=== PATIENT | male | born 1955 | race Caucasian/White ===

== ENCOUNTER 2021-11-30 08:01 | Outpatient (CLI) | payer MEDICARE, SELFPAY ==
--- NOTE | ~2021-11-30 | MR_ITS ---
EXAMINATION: MR hip RT wo/w con DATE: 11/30/2021 09:45 INDICATION: Right hip mass TECHNIQUE: Magnetic resonance imaging (MRI) of the right hip was performed without intravenous contr ast. Sequences included full-field axial PD-weighted FS FSE, T1-weighted FSE, and T1-weighted FS FSE, coronal of the pelvis with PD-weighted FS FSE, T2-weighted FSE and T1-weighted FSE, small field of v iew of the right hip with axial PD-weighted FS FSE, sagittal PD-weighted FS FSE, coronal PD-weighted FS FSE and coronal T2 weighted FSE. Additional radial T1-weighted FGR oriented orthogonal to the ac etabular rim were obtained for evaluation of the labrum. Additional postcontrast full-field axial T1- weighted FS FSE of the pelvis and small [id number] coronal T1-weighted FS FSE of the right hip wer e obtained. COMPARISON: None FINDINGS: Bones/labrum/cartilage: Alignment is normal. No fracture, avascular necrosis or pathologic marrow replacing process. Mild ri ght hip osteoarthritis with posterior predominant mild nonuniform joint space narrowing with mild par tial-thickness cartilage loss with smooth chondral surface. Small tear along the peripheral third of the superolateral right acetabular labrum. Fluid: Symmetric physiologic amount of fluid within both hip joints. Soft tissues: There is a 12 x 3 x 3 cm lenticular intramuscular fatty mass in the right gluteus fish muscle. Thi s contains a central 3.0 x 2.3 x 2.4 cm nonfatty nodular component with central region of low signal intensity on all sequences and a thick peripherally enhancing rim within which appears to be a curvil inear region of low signal intensity suggesting possibility of rim calcification. Differential would include either liposarcoma or heterotopic ossification within a lipoma. Remaining musculature of the pelvis and visualized proximal thighs appears normal. Mild tendinopathy without tear at the ischial t uberosity origins of the bilateral proximal hamstring tendons. The iliopsoas and gluteal tendons are normal. Limited evaluation of visceral organs of the pelvis is unremarkable. No pathologically enlar ged pelvic/inguinal lymphadenopathy. IMPRESSION: 1. 12 x 3 x 3 mm intramuscular fatty mass in the right gluteus fish with 3 cm central nonfatty nod ular component with rim of peripheral enhancement. Differential includes liposarcoma or potentially f at necrosis with heterotopic ossification. Recommend further evaluation with pre and postcontrast CT of the pelvis. 2. Mild right hip osteoarthritis with small tear along the superolateral right acetabular labrum. 3. Mild tendinopathy at the ischial tuberosity origins of the bilateral proximal hamstring tendons. Reviewed, dictated and finalized at location A. ROPOLOGY INSTRUCTOR IMPRESSION: 1. 12 x 3 x 3 mm intramuscular fatty mass in the right gluteus fish with 3 c m central nonfatty nodular component with rim of peripheral enhancement. Differ ential includes liposarcoma or potentially fat necrosis with heterotopic ossifi cation. Recommend further evaluation with pre and postcontrast CT of the pelvis . 2. Mild right hip osteoarthritis with small tear along the superolateral right acetabular labrum. 3. Mild tendinopathy at the ischial tuberosity origins of the bilateral proxima l hamstring tendons.
[2021-11-30 08:36] LABS: Estimated Glomerular Filt Rate > 60
== END 2021-11-30 08:02 | disposition home or self-care (01) ==
LOC: ANHIMG 08:04
PROVIDERS: PCP Family Medicine; Visit Provider Urology
DX: M16.11 Unilateral primary osteoarthritis, right hip (principal); R22.41 Localized swelling, mass and lump, right lower limb
CPT/HCPCS: 73723; A9577

== ENCOUNTER 2025-10-07 07:58 | Outpatient (CLI) | payer MEDICARE, SELFPAY ==
--- OUTSIDE RECORDS SUMMARY | 2025-10-07 08:10 | XMS_ITS | Encounter Summary ---
Author Organization [facility] Healthcare Address [address] [place] [id number] Care Team Providers Care Associate Business Analyst Name Role Phone Omero Mcfarlane MD Primary Care Provider Reason for Referral * MRI/CAT/PET Scan (Routine) - Closed Specialty Diagnoses / Procedures Referred By Contac t Referred To Contact Radiology Diagnoses Prostate cancer (HCC) Procedures MRI PELVIS PROSTATE W WO CONTRAST Alejandro Mancera MD [address] [address] Phone: tel: fax: [address] [address] Referral ID Status Reason Start Date Expiration Date Visits Re quested Visits Authorized [id number] Closed 07/08/2024 09/06/2024 1 1 Encounter Details Date Type Department Care Team (Late st Contact Info) Description 07/23/2024 Community Orders [facility] EpicCare Link Alejandro Mancera MD [address] [address] Prostate cancer (HCC) (Primary Dx) Social History Tobacco Use Types Packs/Day Years Used Date Smoking Tobacco: Never Personal Safety Answer Date Recorded Getting School Help Needed Not on file 01/14 Sex and Gender Information Value Date Recorded Sex Assigned at Not on file 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 Patient denies any symptoms. TECHNIQUE: MRI of the pelvis performed without and with intravenous contrast according to the prostate protocol. All images stored on PACS. CONTRAST TYPE/DOSE: 19mL of GADOTERATE MEGLUMINE 0.5 MMOL/ML INTRAVENOUS SOLUTION (SO) injected via intravenous COMPARISON: MRI pelvis 03/07/2023. FINDINGS: PROSTATE: Size: 3.6 x 5.0 x 3.8 cm. Volume: 35.6 cc. PSA: not available. TRANSITIONAL ZONE: There are changes of mild prostatic hyperplasia. Again noted in the left transitional zone spanning from the base to the midgland is a region of ill-defined T2 hypointense signal. There is also restricted diffusion (series 7 image 56; series 9 image 14). This lesion does not appear to be in capsulated. There is equivocal postcontrast enhancement. PERIPHERAL ZONE: There is artifact on the T2 space sequence, somewhat degrading evaluation. There are some peripheral wedge-shaped areas low T2 signal most compatible with scarring from prior or chronic prostatitis. There is mild asymmetric atrophy of the left peripheral zone. No suspicious masses. SEMINAL VESICLES: Atrophic. NEUROVASCULAR BUNDLE: Normal. LYMPH NODES: No pathologically enlarged lymph nodes. URINARY: Normal. GI: Normal. MUSCULOSKELETAL: No suspicious osseous lesions appreciated. Again noted within the muscle belly of the right gluteus fish (series 2, image 13) there is a 2.3 cm rounded mass which is surrounded by fat. The mass is heterogeneous in appearance. It is not in the field of view on the postcontrast sequences OTHER: No other significant finding. IMPRESSION: 1. A left transitional zone lesion may have slightly increased in size and is categorized as PI-RADS 4. 2. Again noted within the muscle belly of the right gluteus fish there is a 2.3 cm rounded mass which is surrounded by fat. The mass is heterogeneous in appearance. It is not in the field of view on the postcontrast sequences. This is indeterminate. Recommend further evaluation with CT or MRI of the pelvis/right hip with and without contrast. THIS IS AN ELECTRONICALLY VERIFIED FINAL REPORT 09/08/2024 9:31 AM - Electronically signed by Joseph Bermudez M.D. AM: AM Report ID: [id number] Reading Location: [id number] Procedure Note Joseph Bermudez MD - 09/08/2024 EXAM DESCRIPTION: MRI PELVIS PROSTATE W WO CONTRAST REASON FOR STUDY: Prostate cancer, monitor, Active surveillance Monitoring on prostate cancer. Patient denies any symptoms. TECHNIQUE: MRI of the pelvis performed without and with intravenous contrast according to the prostate protocol. All images stored on PACS. CONTRAST TYPE/DOSE: 19mL of GADOTERATE MEGLUMINE 0.5 MMOL/ML INTRAVENOUS SOLUTION (SO) injected via intravenous COMPARISON: MRI pelvis 03/07/2023. FINDINGS: PROSTATE: Size: 3.6 x 5.0 x 3.8 cm. Volume: 35.6 cc.PSA: not available. TRANSITIONAL ZONE: There are changes of mild prostatic hyperplasia. Again noted in the left transitional zone spanning from the base to the midgland is a region of ill-defined T2 hypointense signal. There is also restricted diffusion (series 7 image 56; series 9 image 14). This lesiondoes not appear to be in capsulated. There is equivocal postcontrastenhancement. PERIPHERAL ZONE: There is artifact on the T2 space sequence, somewhat degrading evaluation. There are some peripheral wedge-shaped areas low T2 signal most compatible with scarring from prior or chronic prostatitis.There is mild asymmetric atrophy of the left peripheral zone. No suspicious masses. SEMINAL VESICLES: Atrophic. NEUROVASCULAR BUNDLE: Normal. LYMPH NODES: No pathologically enlarged lymph nodes. URINARY: Normal. GI: Normal. MUSCULOSKELETAL: No suspicious osseous lesions appreciated. Again noted within the muscle belly of the right gluteus fish (series 2, image 13) there is a 2.3 cm rounded mass which is surrounded by fat. The mass is heterogeneous in appearance. It is not in the field of view on the postcontrast sequences OTHER: No other significant finding. IMPRESSION: 1. A left transitional zone lesion may have slightlyincreased in size and is categorized as PI-RADS 4. 2. Again noted within the muscle belly of the right gluteus fish thereis a 2.3 cm rounded mass which is surrounded by fat. The mass isheterogeneous in appearance. It is not in the field of view on the postcontrast sequences.This is indeterminate. Recommend further evaluation with CT or MRI of the pelvis/right hip with and without contrast. THIS IS AN ELECTRONICALLY VERIFIED FINAL REPORT 09/08/2024 9:31 AM - Electronically signed by Joseph Bermudez M.D. AM: AM Report ID: [id number] Reading Location: [place] [address] Alejandro Mancera MD IMG MRI PROCEDURES Final Re sult documented in this encounter Visit Diagnoses Diagnosis Prostate cancer (HCC)- Primary Malignant neoplasm of prostate Prostate cancer (HCC) Malignant neoplasm of prostate documented in this encounter Care Teams Associate Business Analyst Relationship Specialty Start Date End Date Omero Mcfarlane MD PCP - General Family Medicine 03/07/23 documented as of this encounter
--- OUTSIDE RECORDS SUMMARY | 2025-10-07 08:10 | XMS_ITS | Clinical Summary ---
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 Gender Identity Not on file Sexual Orientation Not on file Plan of Treatment Health Maintenance Due Date Last Done Comments Colon Cancer Screening-Colonoscopy 1954 Depression Screening 1954 Fall Risk Assessment 1954 Hepatitis C Screening 1954 Hepatitis B Screening 1972 Pneumococcal vaccine 65+ (1 of 1 - PCV) 2004 Zoster Vaccine (1 of 2) 2004 Abdominal Aortic Aneurysm (AAA) Screen 2019 Well Visit 65+ 2019 Influenza Vaccine (#1) 2025 DTaP/Tdap/Td Vaccine (2 - Td or Tdap) 10/04/2030 Insurance [employer] CHOICE MEDICARE PPO Care Teams Fishing Rod Trimmer Relationship Specialty Start Date End Date Omero Mcfarlane MD PCP - General Family Medicine 03/07/23
--- OUTSIDE RECORDS SUMMARY | 2025-10-07 08:10 | XMS_ITS | Clinical Summary ---
Author Organization [facility] Address [address] [place] [address] Care Team Providers Care Elementary School Science Teacher Name Role Phone Omero Mcfarlane MD Primary Care Provider [phone] Source Comments [facility],non-owned Affiliates and Associated Physician Practices is amultiple site organization consisting of ambulatory clinics and hospital sitesin [place] and [place]. This disclosure is being madepursuant to the Care Everywhere program and may not contain all information available regarding this patient. Last updated 18.[facility] Allergies No known active allergies Medications * Be aware that medications may not be up to date on this document. Alwaysverify current medications with the patient. lisinopril (PRINIVIL; ZESTRIL) 10 MG tablet Take 10 mg by mouth once daily 01/21/2022 Active metFORMIN ER 24hr (GLUCOPHAGE XR) 500 MG tablet Take 500 mg by mouth 2 times daily 10/13/2021 Active Active Problems Problem Noted Date Diagnosed Date Mass of right lower leg 02/28/2022 Social History Tobacco Use Types Packs/Day Years Used Date Smoking Tobacco: Never Smokeless Tobacco: Never Tobacco Cessation:Counseling Given: No Sex and Gender Information Value Date Recorded Sex Assigned at Not on file Legal Sex Male 9:23 AM CDT Gender Identity Not on file Sexual Orientation Not on file Last Filed Vital Signs Vital Sign Reading Time Taken Comments Blood Pressure 138/88 02/28/2022 9:03 AM CDT Pulse 83 02/28/2022 9:03 AM CDT Temperature - - Respiratory Rate - - Oxygen Saturation - - Inhaled Oxygen Concentration - - Weight 88.5 kg (195 lb) 02/28/2022 9:03 AM CDT Height - - Body Mass Index - - Plan of Treatment Health Maintenance Due Date Last Done Comments PAVAN (AGES 45-75) - COL ON CA SCREENING 1954 COLON MONITORING 1954 COLONOSCOPY - COLON CA SCREENING 1954 CT COLONOGRAPHY - COLON CA SCREENING 1954 Colorectal Cancer Screening 1954 FIT - COLON CA SCREENING 1954 FLEX SIG - COLON CA SCREENING 1954 LIPID TESTING 1954 HEPATITIS C SCREENING 06/01/1972 DTAP/TDAP/TD VACCINES (1 - Tdap) 1973 PNEUMOCOCCAL VACCINE 50+ (1 of 1 - PCV) 2004 ZOSTER VACCINE (1 of 2) 2004 DEPRESSION SCREENING 11/18/2024 COVID-19 VACCINE (1 - 2024-2 6 season) 2025 INFLUENZA VACCINE (#1) 2025 Respiratory Syncytial Virus (RSV) Vaccine Pt: or over 60 yrs (1 - 1-dose 75+ series) 2029 HEPATITIS B VACCINE Aged Out No longe r eligible based on patient's age to complete this topic HIB VACCINE Aged Out No longer eligi ble based on patient's age to complete this topic HPV VACCINE Aged Out No longer eligi ble based on patient's age to complete this topic MENINGOCOCCAL (Group B) VACC INE SHARED DECISION-MAKING Aged Out No longer eligibl e based on patient's age to complete this topic MENINGOCOCCAL GROUPS A/C/Y/W VACCINE Aged Out No longer eligible b ased on patient's age to complete this topic Care Teams [employer] Science Teacher Relationship Specialty Start Date End Date Omero Mcfarlane MD [address] [place] [address] PCP - General 02/08/22
[2025-10-07 08:40] LABS: Anion Gap 5 mmol/L (4-12); Blood Urea Nitrogen 18 mg/dL (9-20); Calcium 9.1 mg/dL (8.4-10.2); Carbon Dioxide 27 mmol/L (22-30); Chloride 104 mmol/L (98-107); Estimated Glomerular Filt Rate > 60; Glucose 125 mg/dL (65-110); Potassium 4.3 mmol/L (3.4-5.0); Sodium 136 mmol/L (137-145)
== END 2025-10-07 07:59 | disposition home or self-care (01) ==
LOC: ANHSURGERY 08:01
PROVIDERS: Anesthesiology; PCP Family Medicine; Visit Provider Urology
DX: Z01.818 Encounter for other preprocedural examination (principal); E11.9 Type 2 diabetes mellitus without complications
CPT/HCPCS: 36415; 80048

== ENCOUNTER 2025-10-21 00:47 | Day surgery (SDC) | payer MEDICARE, SELFPAY ==
[2025-10-01 15:41] VITALS: BMI 25.6
--- NOTE | 2025-10-01 15:52 | PC.NURSE ---
[facility] has started construction of its new state of the art ER which will open Spring 2026. With this, we anticipate parking may be a challenge for some our surgical patients and families. Parking spaces are limited but are available for all Surgical, obstetrics, and ER patients sharing this lot. If you arrive and find you are having a hard time finding a parking space, please note that we understand the challenges, please drive around the hospital and park near Hospital Entrance 1. When you enter this entrance, you can ask a volunteer to direct or take you back to the surgical waiting area to check in. We appreciate everyone?s understanding of these expected challenges while we build for your future. Report to the Outpatient Waiting Room, entrance under the green pavilion located off [address], at time _0700am on date __10/21/25 . Planned Procedure Time: __0900am .? Time changes happen often and if your time is changed the preop area will call you the afternoon before. - You and your visitor will be asked to self-screen and do not enter if you have any COVID symptoms. Please call surgeon if you need to reschedule. - A mask is optional within the hospital at this time. Patients may have clear liquids (water, carbonated beverages, clear teas, apple juice) until 3 hours prior to surgery with a maximum of 20 ounces. - No food from midnight until time of surgery and no smoking, or chewing tobacco (or any form of nicotine). No chewing gum, candy or mints. (06:00am) Take only the following medications with a SIP of water on the morning of surgery: ___NONE DO NOT STOP ANY OF YOUR OTHER PRESCRIPTION MEDICATIONS PRIOR TO SURGERY EXCEPT THE FOLLOWING Hold all vitamins, Probiotics, herbs, Aspirin, NSAIDS and supplements for [address] Mancera Date of last dose is 10/13/25 Please no make-up, nail south sudanese, hairspray, perfume, deodorant, or body powder the day of surgery.? No jewelry (including any body piercings) or valuables the day of surgery, leave them at home.? Please take a shower or bath the night before, or the morning of, surgery with an antibacterial soap.? Wear comfortable, loose fitting clothing.? Enema prep per Dr Mancera - Jewelry must be removed prior to entering the operating room.? Rings and piercings that are not removed may be cut off. - The hospital will not accept responsibility for valuables.? - Please leave all valuables, including medications, at home the day of surgery. If you are going home after surgery, a licensed star route mail driver must drive you home.? - NO public transportation without another adult if you receive anesthesia. - We recommend that an adult stay with you for 24 hours following discharge. - We also recommend that you do not drive, make important decision, drink alcoholic beverages, or take any drugs that were not prescribed by your health care provider for at least 24 hours after your discharge time. Follow any additional instructions given to you from your surgeon. Telephone instructions given to _Patient & and asked if any additional questions and then verbalized understanding. Patient advised to call surgeon office or pre surgery nurse liaison [phone] if any additional questions.
--- NOTE | 2025-10-07 14:01 | PM.HPGS ---
History of Present Illness History of Present Illness Consent: Risks, benefits, and alternatives have been discussed and questions answered. Patient agrees to proceed with procedure. Chief complaint: Elev Psa Narrative: Luis Antonio Powell is a 70 year old male with known prostate cancer: 01/2022: ?PSA: 13.1 ?- ?11/29 cores, GGG-1 ?- ?NCCN Favorable IR ?- ?Volume: 37gm 12/2021: mpMRI: ?- PI-RADS 4: 1.3 left ant. transition zone. ?- atypical soft tissue lesion 6cm right gluteus / recommend MRI w/wo contrast RIGHT hip ?a. discussed and referred to General Surgery 01/2022: ?PSA: 13.1, 11/29 cored [place] 6 -> favorable intermediate risk ?- pt. referred to Gen. Surg. for gluteal mass 01/2022: ?Active surveillance for CaP 01/2023: ?Refused confirmatory biopsy / agreeable to repeat mpMRI 02/2023: ?mpMRI ?- PI-RADS 4: 10mm left transition zone / extending from base -> mid gland 10/2023: ?Confirmatory bx.: no identifiable ca. 02/2024: ?PSA: 21.2 / up again ?Will repeat PSA in 3-months 08/2024: ?mpMRI: Unchanged PI-RADS 4: left ant. TZ base/mid-gland 07/2025: PSA: 24.03 Agreeable to confirmatory bx. With this abnormal PSA elevation and MRI findings patient has elected for a UroNav transrectal prostate biopsy. He is aware the risk including, but not limited to, failure to diagnose prostate cancer, need for additional therapy, hematuria, rectal bleeding and systemic infection Review of Systems Review of Systems: All systems reviewed & are unremarkable except as noted in HPI and below PMFSH Past Medical History Medical History Hypertensive heart disease without heart failure Screening for thyroid disorder BMI 30.0-30.9,adult Prostate cancer Labral tear of right hip joint Mass of right hip region Myalgia due to statin BMI 29.0-29.9,adult Surgical History Surgical History Hx of colonoscopy Family History Family History Mother Family history of diabetes mellitus in first degree relative Diabetes mellitus Father Heart disease Sibling Diabetes mellitus FH: cataracts Tobacco abuse Social History Social History Smoking status: Never smoker Tobacco type: cigarettes Second hand tobacco smoke exposure: No Alcohol intake: current Drinks per week: 1 Substance use: never Substance use type: does not use Do You Feel Safe in your Home?: Yes Lack of Transportation: No Lack of Food: Never True Current Housing: I Have Housing Concerned About Future Housing: No Difficulty Paying Gas/Electric Bills: No Difficulty Paying for Meds: No Currently Unemployed: No Education: Trade/Vocational Certificate Difficulty w/ Childcare or Family Care: No Living arrangements: with family Additional living arrangements comments: Occupation/Education: retired 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 Instructions: .Provider Order lisinopril 10 mg tablet 10 mg PO .QOD #90 tabs 09/13/25 10/01/25 Rx empagliflozin 25 mg-metformin ER 1 tablet PO .QOD #90 ea 09/16/25 10/01/25 Rx 1,000 mg tablet,extended release 24hr (Synjardy XR) Allergies Allergy/AdvReac Type Severity Reaction Status Date / Time Kreucoo-YOJ-FbL Reductase Allergy Intermediate Muscle Pain Verified 10/01/25 15:39 Inhibitor (Sttqonl-Mth-Hrc Reductase Inhibitor) Exam Const: General: no acute distress Resp: Effort & Inspection: normal respiratory effort GI: Inspection: non-distended GI Palp: No abdominal tenderness and No Guarding due to palpation present (GI) Auscultation: normal bowel sounds Assessment and Plan Assessment and plan (1) Prostate cancer: Code(s): C61 - Malignant neoplasm of prostate Status: Acute Assessment and Plan: Transrectal ultrasound fusion guided biopsy of prostate
--- OUTSIDE RECORDS SUMMARY | 2025-10-21 00:50 | XMS_ITS | Clinical Summary ---
Author Organization [facility] Address [address] [place] [address] Care Team Providers Care Music Grapher Name Role Phone Omero Mcfarlane MD Primary Care Provider [phone] Source Comments [facility],non-owned Affiliates and Associated Physician Practices is amultiple site organization consisting of ambulatory clinics and hospital sitesin [place], [place], [place] and [place]. This disclosure is being madepursuant to the Care Everywhere program and may not contain all information available regarding this patient. Last updated 18.[facility] Allergies No known active allergies Medications * [...] age to complete this topic Care Teams Music Grapher Relationship Specialty Start Date End Date Omero Mcfarlane MD [address] [place] [address] PCP - General 02/08/22
--- OUTSIDE RECORDS SUMMARY | 2025-10-21 00:50 | XMS_ITS | Encounter Summary ---
Author Organization [facility] Healthcare Address [address] [place] [id number] Care Team Providers Care Highway Painter Helper Name Role Phone Omero Mcfarlane MD Primary Care Provider Reason for Referral * MRI/CAT/PET Scan (Routine) - Closed Specialty Diagnoses / Procedures Referred By Contac t Referred To Contact Radiology Diagnoses Prostate cancer (HCC) Procedures MRI PELVIS PROSTATE W WO CONTRAST Alejandro Mancera MD [address] [address] Phone: tel: fax: [address] [phone] Referral ID Status Reason Start Date Expiration Date Visits Re quested Visits Authorized [id number] Closed 07/08/2024 09/06/2024 1 1 Encounter Details Date Type Department Care Team (Late st Contact Info) Description 07/23/2024 Community Orders [facility] EpicCare Link Alejandro Mancera MD [address] [address] Prostate cancer (HCC) (Primary Dx) Social History Tobacco Use Types Packs/Day Years Used Date Smoking Tobacco: Never Personal Safety Answer Date Recorded Getting School Help Needed Not on file 01/14 Sex and Gender Information Value Date Recorded Sex Assigned at Not on file 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 AM: AM Report ID: [id number] Reading Location: [id number] Procedure Note Joseph Bermudez MD - 09/08/2024 [...] Joseph Bermudez M.D. AM: AM Report ID: [id number] Reading Location: [place] [address] Alejandro Mancera MD IMG MRI PROCEDURES Final Re sult documented in this encounter Visit Diagnoses Diagnosis Prostate cancer (HCC)- Primary Malignant neoplasm of prostate Prostate cancer (HCC) Malignant neoplasm of prostate documented in this encounter Care Teams Highway Painter Helper Relationship Specialty Start Date End Date Omero Mcfarlane MD PCP - General Family Medicine 03/07/23 documented as of this encounter
--- OUTSIDE RECORDS SUMMARY | 2025-10-21 00:50 | XMS_ITS | Clinical Summary ---
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
--- OUTSIDE RECORDS SUMMARY | 2025-10-21 00:50 | XMS_ITS | Clinical Summary ---
Author Organization [facility] Address [facility] [place] [address] Care Team Providers Care Park Guide Name Role Phone Omreo Mcfarlane MD Primary Care Provider [phone] Allergies No known active allergies Medications oxyCODONE-Acetam inophen 5-300 MG TabIndications:A cute Pain < 7 Day Supply Take 1 tablet by mouth every 6 (six) hours as needed. Indications : Acute Pain < 7 Day Supply 15 tablet 10/07/2020 Active Hospital, Clinic, or Other Facility Administered Medication Ordered Dose Route Frequency Start Date End Date Status lidocaine (XYLOCAINE) 1 % injection SOLN 3 mLIndications:Type 2 diabetes mellitus without complication, without long-term current use of insulin ([facility]),Onychomycosis,Ingr owing nail,Pain in toes of both feet 3 mL IX Once 09/28/2025 09/28/2025 Ended Encounters Date Type Department Care Team Description 09/28/2025 9:40 AM TEAM LEADER/RESEARCH PSYCHOLOGIST Office Visit [facility] [address] [place] [address] Manuel Victoria DPM Meet and Aman Provider (Patient presents for diabetic foot care./) 09/28/2025 Travel from Last 3 Months Immunizations Immunization Administration Dates Next Due Tdap (Adacel) 10/04/2020 Social History Tobacco Use Types Packs/Day Years Used Date Smoking Tobacco: Never Smokeless Tobacco: Never Tobacco Cessation:Counseling Given: No Alcohol Use Standard Drinks/Week Comments Yes 0 (1 standard drink = 0.6 oz pur e alcohol) rarely PHQ-2 Answer Date Recorded Patient Health Questionnaire-2 Score 0 09/28/2025 Sex and Gender Information Value Date Recorded Sex Assigned at Not on file Legal Sex Male 5:34 PM CDT Gender Identity Male 09/28/2025 9:23 AM TEAM LEADER/RESEARCH PSYCHOLOGIST Sexual Orientation Not on file Last Filed Vital Signs Vital Sign Reading Time Taken Comments Blood Pressure 134/75 09/28/2025 9:23 AM TEAM LEADER/RESEARCH PSYCHOLOGIST Pulse 84 09/28/2025 9:23 AM TEAM LEADER/RESEARCH PSYCHOLOGIST Temperature 36.6 C (97.8 F) 09/28/2025 9:23 AM TEAM LEADER/RESEARCH PSYCHOLOGIST Respiratory Rate 16 09/28/2025 9:23 AM TEAM LEADER/RESEARCH PSYCHOLOGIST Oxygen Saturation 97% 09/28/2025 9:23 AM TEAM LEADER/RESEARCH PSYCHOLOGIST Inhaled Oxygen Concentration - - Weight 83.1 kg (183 lb 3.2 oz) 09/28/2025 9:23 A M TEAM LEADER/RESEARCH PSYCHOLOGIST Height 177.8 cm (5' 10) 09/28/2025 9:23 AM TEAM LEADER/RESEARCH PSYCHOLOGIST Body Mass Index 26.29 09/28/2025 9:23 AM TEAM LEADER/RESEARCH PSYCHOLOGIST Plan of Treatment Health Maintenance Due Date Last Done Comments Colorectal Cancer Screening Colonoscopy (10 Years) 1954 Kidney Health Evaluation 1954 Hemoglobin A1C 1954 Lipid Panel 1954 Diabetes: Retinopathy Eye Exam 1972 Hepatitis C 1972 Pneumococcal Vaccine: 50+ Ye ars (1 of 2 - PCV) 1973 Zoster Vaccines (1 of 2) 2004 Annual Medicare Wellness Visit 2019 COVID-19 Vaccine ( - 2024-2 6 season) 2025 Influenza Adult (#1) 2025 RSV Immunization or 60+ Years (1 - 1-dose 75+ series) 2029 DTaP, Tdap and Td Vaccines ( 2 - Td or Tdap) 10/04/2030 10/04/2020 PHQ-2 (Physician [place]) Completed 09/28/2025 Hepatitis A Vaccines Aged Out No long er eligible based on patient's age to complete this topic Meningococcal B Vaccine Aged Out No l onger eligible based on patient's age to complete this topic Meningococcal Vaccine Aged Out No anita lauren eligible based on patient's age to complete this topic RSV Immunizations Under 20 Months Aged Out No longer eligible based on patient's age to complete this topic Insurance [employer] MEDICARE Care Teams Park Guide Relationship Specialty Start Date End Date Omero Mcfarlane MD [address] [place] [address] PCP - General FAMILY PRACTICE 10/04/20
--- NOTE | 2025-10-21 06:29 | WPDHPUPDATE1 ---
History and Physical Update Update Date/Time: 10/21/25 06:29 History and Physical has been reviewed, including an updated exam of the patient. There are NO changes in the patient's condition. Risks, benefits, and alternatives have been discussed and questions answered. Patient agrees to proceed with procedure.
[2025-10-21 07:00] VITALS: BP 146/71; PULSE 82; RESP 16; TEMP 36.3; O2SAT 100
[2025-10-21] MEDS: LACTATED RINGERS 1,000 ML 30 ML IV CONT (07:30)
--- NOTE | 2025-10-21 07:43 | S_PTH ---
PATIENT: Luis Antonio Powell LOC: [facility] U#:[id number] AGE/SX: 70/M ROOM: RE10/21/[address]: Alejandro Mancera MD : 1955 BED: DIS: 10/21/2025 SPEC #: [id number] RECD: 10/21/25 09:42 STATUS: MOISES RE #: [id number] LAURA: 10/21/25 07:[address]: Alejandro Mancera DEPT: [facility] Surgical RECD BY: Jennifer Clay ENTERED: 10/21/25 09:43 SP TYPE: Surgical OTHR DR: Omero Mcfarlane MD Tissues: A - Prostate Bx B - Prostate Bx C - Prostate Bx D - Prostate Bx E - Prostate Bx F - Prostate Bx G - Prostate Bx H - Prostate Bx I - Prostate Bx J - Prostate Bx K - Prostate Bx L - Prostate Bx M - Prostate Bx Procedures: Unstained Slides Hematoxylin and Eosin Stain Prostate Biopsy
--- NOTE | 2025-10-21 08:06 | P.PNAN_ITS ---
Anes - Initial Pre Proc Eval Procedure: Operation Date: 10/21/25 09:00 Proposed Procedures p Trans Rectal Ultrasound Fusion Guided Prostate Biopsy - Alejandro Mancera MD Date/Time: 10/21/25 08:06 Surgeon: Alejandro Mancera MD Pre Op Diagnosis: Elev Psa Patient Data Age: 70 Gender: M Height: 1.78 m Weight: 82.4 kg Last Vital Signs Temp 36.3 C L 10/21/25 07:00 Pulse 82 10/21/25 07:00 Resp 16 10/21/25 07:00 BP 146/71 H 10/21/25 07:00 Pulse Ox 100 10/21/25 07:00 O2 Del Method Room Air 10/21/25 07:00 Allergies Allergy/AdvReac Type Severity Reaction Status Date / Time Ujcitqs-WCC-ByZ Reductase Allergy Intermediate Muscle Pain Verified 10/21/25 07:44 Inhibitor (Jzfsnpe-Akb-Yxh Reductase Inhibitor) Home Medications ?Medication ?Instructions ?Recorded ?Confirmed ?Type aspirin 81 mg tablet,delayed 81 mg PO DAILY 12/13/21 1 12/01/24 History release Held on 10/01/25. Instructions: .Provider Order lisinopril 10 mg tablet 10 mg PO .QOD #90 tabs 09/1310/21/25 Rx empagliflozin 25 mg-metformin ER 1 tablet PO .QOD #90 ea 09/16/25 10/21/25 Rx 1,000 mg tablet,extended release 24hr (Synjardy XR) Laboratory Tests 10/21/25 07:32 POC Capillary Glucose 143 H mg/dl (65-105) Patient hx anesthesia problems: none Family hx anesthesia problems: none Results Review: All pre-operative results and documents have been reviewed as part of the pre- operative evaluation. [facility] Past Medical History Medical History Hypertensive heart disease without heart failure Screening for thyroid disorder BMI 30.0-30.9,adult Prostate cancer Labral tear of right hip joint Mass of right hip region Myalgia due to statin BMI 29.0-29.9,adult Surgical History Surgical History Hx of colonoscopy Family History Family History Mother Family history of diabetes mellitus in first degree relative Diabetes mellitus Father Heart disease Sibling Diabetes mellitus FH: cataracts Tobacco abuse Social History Social History Smoking status: Never smoker Tobacco type: cigarettes Second hand tobacco smoke exposure: No Alcohol intake: current Drinks per week: 1 Substance use: never Substance use type: does not use Lack of Transportation: No Lack of Food: Never True Current Housing: I Have Housing Concerned About Future Housing: No Difficulty Paying Gas/Electric Bills: No Difficulty Paying for Meds: No Currently Unemployed: No Education: Trade/Vocational Certificate Difficulty w/ Childcare or Family Care: No Living arrangements: with family Additional living arrangements comments: Occupation/Education: retired 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 Gender identity (if verbalized by the patient): Male Sexual Orientation (if Verbalized by the Patient): Straight or Heterosexual Spiritual care concerns: No Agree to blood products: Yes Anes - Eval Final PreProcedure Day of Procedure 10/21/25 08:06 Patient weight: normal Heart: regular rate and rhythm Lungs: normal air movement Airway: Mallampati scale class II Neurological: alert and oriented Last oral intake: >/= 8 hours ASA classification: III Emergent: no Anesthetic plan: proceed Anesthesia type and monitoring: general GIVS and standard monitoring Results Review: All pre-operative results and documents have been reviewed as part of the pre- operative evaluation. Informed Consent: The patient's anesthetic plan and its attendant risks and benefits were discussed with the patient/family/POA. Questions were solicited and answers provided to the satisfaction of the patient/family/POA.
[2025-10-21] MEDS: cefTRIAXone 1 GM in SODIUM CHLORIDE 0.9% IV 50 ML 100 ML IVPB (08:52)
--- NOTE | 2025-10-21 09:12 | W.PM.PROC2 ---
Procedure Note - Detailed Date of Procedure 10/21/25 Pre-op Diagnosis Prostate cancer Post-op Diagnosis Same Procedure Performed UroNave prostate biopsy Surgeon Alejandro Mancera MD Anesthesia General Description of Procedure Patient is brought to the operative suite where he is positioned in the left lateral position. Systemic sedation is administered per the anesthesia department. Surgical time-out is undertaken and it's verified the patient has received preoperative antibiotics. Transrectal ultrasonography is undertaken with a standard transrectal probe. The Arlettie system is used to superimpose his previously obtained mpMRI prostate images on the real-time transrectal ultrasond images. Prostate volume is calculated at 41cc. On the previous mpMRI there are one region of interest. Using the transrectal needle design for prostate biopsies 3 cores from each region of interest her obtain. We then proceeded with a standard 12 core prostate biopsy. Transrectal probe was removed and patient taken to recovery room having tolerated the procedure well. Blood loss was less than 10 cc.
[2025-10-21 09:14] VITALS: BP 100/58; PULSE 75; RESP 18; O2SAT 97
[2025-10-21 09:45] VITALS: BP 140/69; PULSE 75; RESP 16
[2025-10-21 10:02] VITALS: BP 138/68; PULSE 75; RESP 16
== END 2025-10-21 10:09 | disposition home or self-care (01) ==
PROVIDERS: PCP Family Medicine; Visit Provider Urology
PROC: (CPT 55700; principal; 2025-10-21 09:00)
DX: C61 Malignant neoplasm of prostate (principal); N41.1 Chronic prostatitis; Z79.84 Long term (current) use of oral hypoglycemic drugs
CPT/HCPCS: 55700; 76872; 82948; G0416; J0696; J2003; J2704; J3010; J7120